=== PATIENT | female | born 1950 | race Caucasian/White ===

== ENCOUNTER 2022-02-21 10:15 | Day surgery (SDC) | payer MEDICARE, SELFPAY ==
[2022-02-15 09:51] VITALS: BMI 28.0
[2022-02-21 10:43] VITALS: BMI 27.2
[2022-02-21 10:44] VITALS: BP 140/84; PULSE 63; RESP 14; TEMP 37.3; O2SAT 100
[2022-02-21] MEDS: TETRACAINE HCL 0.5% OPHTH SOLN 4 ML BTL 1 DROP AFFCTD EYE ×3 (10:47→10:57)
--- NOTE | 2022-02-21 12:02 | WPDHPUPDATE1 ---
History and Physical Update Update Date/Time: 02/21/22 12:02 History and Physical has been reviewed, including an updated exam of the patient. There are NO changes in the patient's condition. Risks, benefits, and alternatives have been discussed and questions answered. Patient agrees to proceed with procedure.
--- NOTE | 2022-02-21 12:27 | W.PM.PROC2 ---
Procedure Note - Detailed Date of Procedure 02/21/22 Pre-op Diagnosis Posterior Capsular Opacification Left Eye Post-op Diagnosis Same Procedure Performed YAG Laser Capsulotomy [LEFT] eye Surgeon Yannick Johnson MD Anesthesia Other (Topical) Description of Procedure After appropriate discussion, consent and topical anesthesia, the patient was placed in front of the laser. All settings were checked. The laser procedure was then performed. The patient tolerated the procedure well. Power Level: [3.0mJ] Number of Pulses: [10] Complications None Condition Stable Disposition Same day
== END 2022-02-21 11:34 | disposition home or self-care (01) ==
PROVIDERS: Visit Provider Student in an Organized Health Care Education/Training Program
PROC: (CPT 66821; principal; 2022-02-21 11:30)
DX: H26.492 Other secondary cataract, left eye (principal)
CPT/HCPCS: 66821